=== PATIENT | male | born 1960 | race Caucasian/White ===

== ENCOUNTER 2018-07-04 13:02 | Emergency (ER) | payer OTHER, MEDICARE ==
[~2018-07-04] VITALS: Ht 170.1 cm; Wt 83.5 kg
--- NOTE | ~2018-07-04 | EKG ---
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
[~2018-07-04 13:02] MED LIST: AMLODIPINE BESYL5 MG PO; ATENOLOL25 MG PO; CETIRIZINE HCL10 MG PO; COUMADIN10 M1 PO; COZAAR100 MG PO; FISH OIL 1,0001 EAC1 PO; HYDROCHLOROTHIA25 M1 PO; LIPITOR80 MG PO; VITAMIN D-32000 UNIT PO
[2018-07-04 13:48] LABS: BASO % 0.6 % (0.0-1.0); EOS # 0.1 10*3/uL (0.0-0.4); EOS % 0.8 % (1.0-4.0); HEMATOCRIT 46.5 % (42.0-52.0); HEMOGLOBIN 15.8 g/dl (14.0-18.0); LYMPH # 1.3 10*3/uL (1.3-4.4); LYMPH % 20.5 % (27.0-41.0); MEAN CELL VOLUME 92.3 fl (80.0-94.0); MEAN CORPUSCULAR HGB 31.3 pg (27.0-31.0); MEAN PLATELET VOLUME 11.9 fl (9.6-12.3); MONO # 0.5 10*3/uL (0.1-1.0); MONO % 8.2 % (3.0-9.0); NEUT # 4.5 10*3/uL (2.3-7.9); NEUT % 69.7 % (47.0-73.0); PLATELET COUNT AUTOMATED 171 10*3/uL (130-400); RED BLOOD COUNT 5.04 10*6/uL (4.50-5.90); RED CELL DISTRI WIDTH 13.9 % (0-14.5); WHITE BLOOD COUNT 6.4 10*3/uL (4.8-10.8)
[2018-07-04 13:54] LABS: INTERNATIONAL NORM RATIO 2.7 (2.0-3.5)
[2018-07-04 14:01] LABS: ALBUMIN 4.1 gm/dl (3.1-4.5); ALKALINE PHOSPHATASE 85 U/L (45-117); BUN 12 mg/dl (7-24); CHLORIDE 105 mmol/L (98-107); CREATININE 1.05 mg/dL (0.70-1.30); POTASSIUM 3.8 mmol/L (3.5-5.1); SGOT/AST 39 IU/L (3-35); SGPT/ALT 60 U/L (12-78); SODIUM 140 mmol/L (136-145); TOTAL PROTEIN 7.9 gm/dL (6.4-8.2)
[2018-07-04 14:10] LABS: TROPONIN I < 0.015 ng/ml (<0.045)
== END 2018-07-04 15:50 | disposition home or self-care (01) ==
LOC: ED 13:02
PROVIDERS: Emergency Medicine
DX: R09.1 Pleurisy (principal); I10 Essential (primary) hypertension; E78.00 Pure hypercholesterolemia, unspecified; E66.3 Overweight; I73.9 Peripheral vascular disease, unspecified; Z90.49 Acquired absence of other specified parts of digestive tract; Z86.718 Personal history of other venous thrombosis and embolism; Z79.01 Long term (current) use of anticoagulants; Z79.899 Other long term (current) drug therapy; Z88.8 Allergy status to other drugs, medicaments and biological substances

== ENCOUNTER 2019-02-19 14:48 | Inpatient (IN) | payer MEDICARE ==
[~2019-02-19] VITALS: Ht 172.7 cm; Wt 84.5 kg
--- NOTE | ~2019-02-19 | EKG ---
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
--- NOTE | ~2019-02-19 | EKG ---
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
--- NOTE | ~2019-02-19 | EKG ---
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
[2019-02-19 14:52] VITALS: BP 114/56
[2019-02-19 16:05] LABS: BASO # 0.1 10*3/uL (0.0-0.1); BASO % 0.4 % (0.0-1.0); EOS % 0.3 % (1.0-4.0); HEMATOCRIT 47.2 % (42.0-52.0); LYMPH # 1.1 10*3/uL (1.3-4.4); LYMPH % 9.1 % (27.0-41.0); MEAN CELL VOLUME 93.1 fl (80.0-94.0); MEAN CORPUSCULAR HGB 31.6 pg (27.0-31.0); MEAN CORPUSCULAR HGB CONC 33.9 g/dl (33.0-37.0); MEAN PLATELET VOLUME 12.9 fl (9.6-12.3); MONO # 0.6 10*3/uL (0.1-1.0); MONO % 4.9 % (3.0-9.0); NEUT % 84.9 % (47.0-73.0); PLATELET COUNT AUTOMATED 153 10*3/uL (130-400); RED BLOOD COUNT 5.07 10*6/uL (4.50-5.90); RED CELL DISTRI WIDTH 13.9 % (0-14.5); WHITE BLOOD COUNT 11.7 10*3/uL (4.8-10.8)
[2019-02-19 16:19] LABS: ACT PARTIAL THROMBO TIME 25.6 SECONDS (20.0-32.1)
--- NOTE | 2019-02-19 16:36 | NUR ---
Deena ROSAS notified of critical lactic acid of 2.5
[2019-02-19 16:53] VITALS: BP 109/55
--- NOTE | 2019-02-19 16:53 | NUR ---
Patient reports 5/10 pain to his head. Patient given 1 norco. Will continue to monitor.
[2019-02-19 17:25] LABS: ALBUMIN 3.8 gm/dl (3.1-4.5); ALKALINE PHOSPHATASE 81 U/L (45-117); BUN 10 mg/dl (7-24); CHLORIDE 106 mmol/L (98-107); CREATININE 1.04 mg/dL (0.70-1.30); LIPASE 118 U/L (73-393); POTASSIUM 3.5 mmol/L (3.5-5.1); SGOT/AST 20 IU/L (3-35); SGPT/ALT 32 U/L (12-78); SODIUM 143 mmol/L (136-145)
[2019-02-19 17:27] LABS: TROPONIN I < 0.015 ng/ml (<0.045)
[2019-02-19 18:56] VITALS: BP 109/64
[2019-02-19 19:10] VITALS: BP 130/64
--- NOTE | 2019-02-19 19:10 | NUR ---
A 58, admitted to , under the services of LISSETTE Ortega DO with a diagnosis of CLOSED FRACTURE NASAL BONE, SYNCOPE AND COLLAPSE. Chief complaint is SYNCOPE. Patient arrived via bed from ER. Monitor applied. Initial assessment completed. Vital signs taken and recorded. LISSETTE ORTEGA DO notified of admission to the unit. Orders received. See assessment for past medical history, medications and allergies. Patient and/or family oriented to unit. [facility] visitation policy reviewed. Clothing/patient valuable form completed. KEIKO OJEDA
[2019-02-19] MEDS ORDERED: XARELTO20 M1 PO (19:37)
--- NOTE | 2019-02-19 21:12 | NUR ---
DR. CABRALES NOTIFIED OF COMPLETE MED REC. ORDERS RECEIVED.
--- NOTE | 2019-02-19 22:50 | NUR ---
DR. KELLER'S ANSWERING SERVICE NOTIFIED OF CONSULT.
[2019-02-20] VITALS: BP 116/63
--- NOTE | 2019-02-20 | NUR ---
PT RESTING COMFORTABLY. NO SIGNS/REPORTS OF DIZZINESS AT THIS TIME. CALL LIGHT IN REACH.
--- NOTE | 2019-02-20 00:36 | NUR ---
DR. CABRALES NOTIFIED OF PT HR OF 36. NO NEW ORDERS AT THIS TIME.
--- NOTE | 2019-02-20 01:14 | NUR ---
24 HR chart check completed.
--- NOTE | 2019-02-20 02:03 | NUR ---
DR. CABRALES NOTIFIED OF PT HR 33 THEN 29. NO NEW ORDERS AT THIS TIME. STATED TO NOTIFY HIM IF PT STAYED SUB 30.
[2019-02-20 06:41] LABS: BASO % 0.6 % (0.0-1.0); EOS # 0.1 10*3/uL (0.0-0.4); EOS % 2.1 % (1.0-4.0); HEMOGLOBIN 14.7 g/dl (14.0-18.0); LYMPH # 2.4 10*3/uL (1.3-4.4); MEAN CELL VOLUME 94.7 fl (80.0-94.0); MEAN CORPUSCULAR HGB 30.9 pg (27.0-31.0); MEAN CORPUSCULAR HGB CONC 32.7 g/dl (33.0-37.0); MEAN PLATELET VOLUME 13.6 fl (9.6-12.3); MONO # 0.5 10*3/uL (0.1-1.0); MONO % 7.4 % (3.0-9.0); NEUT # 3.6 10*3/uL (2.3-7.9); NEUT % 53.7 % (47.0-73.0); PLATELET COUNT AUTOMATED 141 10*3/uL (130-400); RED BLOOD COUNT 4.75 10*6/uL (4.50-5.90); WHITE BLOOD COUNT 6.6 10*3/uL (4.8-10.8)
[2019-02-20 07:17] LABS: ALBUMIN 3.4 gm/dl (3.1-4.5); ALKALINE PHOSPHATASE 66 U/L (45-117); BUN 14 mg/dl (7-24); CHLORIDE 108 mmol/L (98-107); CHOLESTEROL 93 mg/dL (<200); CREATININE 0.92 mg/dL (0.70-1.30); HDL CHOLESTEROL 32 mg/dl (40-60); LDL CHOLESTEROL 36 mg/dL (9-159); PHOSPHOROUS 3.4 mg/dL (2.5-4.9); POTASSIUM 3.5 mmol/L (3.5-5.1); SGOT/AST 18 IU/L (3-35); SGPT/ALT 29 U/L (12-78); SODIUM 143 mmol/L (136-145); TOTAL PROTEIN 6.1 gm/dL (6.4-8.2); TRIGLYCERIDES 126 mg/dl (<150); VLDL CHOLESTEROL 25 mg/dL (6-40)
[2019-02-20 07:19] LABS: ACT PARTIAL THROMBO TIME 35.5 SECONDS (20.0-32.1); INTERNATIONAL NORM RATIO 1.1 (2.0-3.5)
[2019-02-20 07:23] LABS: THYROID STIM HORMONE (HS) 0.422 uIU/ml (0.358-4.75)
[2019-02-20 07:43] LABS: VITAMIN D, 25-HYDROXY 49.7 ng/mL (30-100)
[2019-02-20 08:00] VITALS: BP 120/70
[2019-02-20 09:40] LABS: BILIRUBIN NEGATIVE (NEGATIVE); BLOOD NEGATIVE (NEGATIVE); CLARITY CLEAR (CLEAR); COLOR YELLOW (YELLOW); GLUCOSE NEGATIVE (NEGATIVE); KETONE NEGATIVE (NEGATIVE); LEUKO ESTERASE NEGATIVE (NEGATIVE); NITRITE NEGATIVE (NEGATIVE); SPECIFIC GRAVITY 1.025 (1.005-1.030); UROBILINOGEN 0.2 E.U./dl (0.2-1.0)
[2019-02-20 10:09] LABS: BACTERIA 1+; MUCOUS 1+
--- NOTE | 2019-02-20 11:15 | NUR ---
Data Reviewer in to talk to patient. Patient states lives at HOME with ALONE. There are NO steps in the home. Physician: Jodee REDD Pharmacy: [facility] Home health services: NONE Patient's level of ADLs: INDEPENDENT Patient has working utilities: YES DME: NONE Follow-up physician's appointment after d/c: WILL BE MADE BY HOSPITALIST NURSE DIRECTOR ON DISCHARGE Does patient want to access PORTAL?: NO Discharge plan PT STATES HE LIVES AT HOME ALONE AND IS INDEPENDENT IN HIS CARE. DENIES ANY NEEDS ON DISCHARGE. WILL CONTINUE TO FOLLOW. STATES HE WILL HAVE RIDE HOME. . KORI HOLM
[2019-02-20 12:00] VITALS: BP 134/63
--- NOTE | 2019-02-20 16:30 | NUR ---
Discharge instructions reviewed with patient/family. Patient receptive and verbalizes understanding. Follow-up care arranged. Written instructions given to patient/family. EMA MONTES
== END 2019-02-20 16:33 | disposition home or self-care (01) | DRG 312 ==
LOC: ED 14:48 → EDHOLD 18:34 → 5E 18:34
PROVIDERS: Internal Medicine; Nurse Practitioner Family; ADMIT Internal Medicine
DX: R55 Syncope and collapse (principal); E87.2 Acidosis; D68.59 Other primary thrombophilia; I82.503 Chronic embolism and thrombosis of unspecified deep veins of lower extremity, bilateral; R00.1 Bradycardia, unspecified; S02.2XXA Fracture of nasal bones, initial encounter for closed fracture; D72.829 Elevated white blood cell count, unspecified; I10 Essential (primary) hypertension; E78.00 Pure hypercholesterolemia, unspecified; I70.203 Unspecified atherosclerosis of native arteries of extremities, bilateral legs; F12.90 Cannabis use, unspecified, uncomplicated; S00.81XA Abrasion of other part of head, initial encounter; E66.3 Overweight; W07.XXXA Fall from chair, initial encounter; Y93.89 Activity, other specified; Y99.8 Other external cause status; Z88.8 Allergy status to other drugs, medicaments and biological substances; Y92.098 Other place in other non-institutional residence as the place of occurrence of the external cause; Z90.49 Acquired absence of other specified parts of digestive tract; Z82.49 Family history of ischemic heart disease and other diseases of the circulatory system; Z80.8 Family history of malignant neoplasm of other organs or systems; Z79.899 Other long term (current) drug therapy; Z79.01 Long term (current) use of anticoagulants; Z68.28 Body mass index [BMI] 28.0-28.9, adult

== ENCOUNTER 2021-03-03 10:08 | Inpatient (IN) | payer OTHER ==
[~2021-03-03] VITALS: Ht 172.7 cm; Wt 87.3 kg
[~2021-03-03 10:08] MED LIST changes: +XARELTO20 M1 PO
[2021-03-03 10:16] VITALS: BP 203/91
[2021-03-03 11:08] LABS: BASO # 0.1 10*3/uL (0.0-0.1); BASO % 0.6 % (0.0-1.0); EOS # 0.1 10*3/uL (0.0-0.4); EOS % 0.8 % (1.0-4.0); HEMATOCRIT 45.3 % (42.0-52.0); LYMPH # 1.4 10*3/uL (1.3-4.4); LYMPH % 15.7 % (27.0-41.0); MEAN CORPUSCULAR HGB 29.8 pg (27.0-31.0); MEAN PLATELET VOLUME 11.4 fl (9.6-12.3); MONO # 0.6 10*3/uL (0.1-1.0); MONO % 6.9 % (3.0-9.0); NEUT # 6.6 10*3/uL (2.3-7.9); NEUT % 75.7 % (47.0-73.0); PLATELET COUNT AUTOMATED 195 10*3/uL (130-400); RED BLOOD COUNT 4.87 10*6/uL (4.50-5.90); RED CELL DISTRI WIDTH 13.8 % (0-14.5); WHITE BLOOD COUNT 8.7 10*3/uL (4.8-10.8)
[2021-03-03 11:18] LABS: ALBUMIN 3.5 gm/dl (3.1-4.5); ALKALINE PHOSPHATASE 75 U/L (45-117); BUN 11 mg/dl (7-24); CHLORIDE 104 mmol/L (98-107); CREATININE 0.76 mg/dL (0.70-1.30); LIPASE 101 U/L (73-393); POTASSIUM 3.9 mmol/L (3.5-5.1); SGOT/AST 17 IU/L (3-35); SGPT/ALT 24 U/L (12-78); SODIUM 136 mmol/L (136-145); TOTAL PROTEIN 7.8 gm/dL (6.4-8.2); TROPONIN I < 0.015 ng/ml (<0.045)
[2021-03-03 11:20] VITALS: BP 184/87
[2021-03-03 12:00] VITALS: BP 154/80
[2021-03-03 16:00] VITALS: BP 158/63
[2021-03-03] MEDS ORDERED: WARFARIN SODIU7.5 MG PO (19:39)
[2021-03-03 20:00] VITALS: BP 163/84
[2021-03-04] VITALS (9 sets, daily range): BP systolic 143–198; BP diastolic 61–82
[2021-03-04] MEDS ORDERED: GABAPENTIN400 MG PO (01:27)
[2021-03-04] MEDS ORDERED: LISINOPRIL2.5 MG PO (01:28)
[2021-03-04 06:25] LABS: BASO % 0.4 % (0.0-1.0); EOS # 0.1 10*3/uL (0.0-0.4); EOS % 0.5 % (1.0-4.0); LYMPH # 1.2 10*3/uL (1.3-4.4); LYMPH % 13.2 % (27.0-41.0); MEAN CELL VOLUME 92.5 fl (80.0-94.0); MEAN CORPUSCULAR HGB 29.9 pg (27.0-31.0); MEAN CORPUSCULAR HGB CONC 32.3 g/dl (33.0-37.0); MEAN PLATELET VOLUME 11.2 fl (9.6-12.3); MONO # 0.7 10*3/uL (0.1-1.0); NEUT # 7.2 10*3/uL (2.3-7.9); NEUT % 78.6 % (47.0-73.0); PLATELET COUNT AUTOMATED 204 10*3/uL (130-400); RED BLOOD COUNT 4.65 10*6/uL (4.50-5.90); RED CELL DISTRI WIDTH 13.5 % (0-14.5); WHITE BLOOD COUNT 9.2 10*3/uL (4.8-10.8)
[2021-03-04 06:31] LABS: CHLORIDE 106 mmol/L (98-107); POTASSIUM 3.7 mmol/L (3.5-5.1); SODIUM 137 mmol/L (136-145)
[2021-03-04 06:49] LABS: ALBUMIN 3.1 gm/dl (3.1-4.5); ALKALINE PHOSPHATASE 71 U/L (45-117); BUN 10 mg/dl (7-24); CHOLESTEROL 104 mg/dL (<200); CREATININE 0.75 mg/dL (0.70-1.30); FREE T4 1.23 ng/dl (0.76-1.46); LDL CHOLESTEROL 47 mg/dL (9-159); SGOT/AST 18 IU/L (3-35); SGPT/ALT 22 U/L (12-78); THYROID STIM HORMONE (HS) 0.775 uIU/ml (0.358-4.75); TOTAL PROTEIN 7.1 gm/dL (6.4-8.2); TRIGLYCERIDES 122 mg/dl (<150)
[2021-03-04 07:55] LABS: VITAMIN D, 25-HYDROXY 41.4 ng/mL (30-100)
[2021-03-04 08:53] LABS: INTERNATIONAL NORM RATIO 3.2 (2.0-3.5)
[2021-03-04] MEDS ORDERED: NEURONTIN400 MG PO (13:39)
[2021-03-04] MEDS ORDERED: METOPROLOL SUCC50 M1 PO (13:47)
[2021-03-04] MEDS ORDERED: SERTRALINE HYDR50 MG PO (13:48)
[2021-03-04] MEDS ORDERED: ASPIRIN CHEWABL81 MG PO (13:50)
[2021-03-05] VITALS: BP 174/70
[2021-03-05 08:00] VITALS: BP 180/75
[2021-03-05 12:00] VITALS: BP 174/72
[2021-03-05 16:00] VITALS: BP 170/68
[2021-03-05 20:00] VITALS: BP 181/74
[2021-03-06] VITALS: BP 154/74
[2021-03-06 06:23] LABS: INTERNATIONAL NORM RATIO 1.4 (2.0-3.5)
[2021-03-06 08:00] VITALS: BP 161/67
[2021-03-06] MEDS ORDERED: DOXYCYCLINE100 M3 PO (11:00)
[2021-03-06] MEDS ORDERED: JANTOVEN6 M1 PO (11:09)
== END 2021-03-06 12:04 | disposition home or self-care (01) | DRG 565 ==
LOC: ED 10:08 → EDHOLD 10:56 → 5E 10:56
PROVIDERS: Emergency Medicine; Hospitalist; Registered Nurse; ADMIT Internal Medicine; ATTEND Internal Medicine
DX: T87.44 Infection of amputation stump, left lower extremity (principal); D68.59 Other primary thrombophilia; E44.0 Moderate protein-calorie malnutrition; E78.00 Pure hypercholesterolemia, unspecified; I73.9 Peripheral vascular disease, unspecified; I10 Essential (primary) hypertension; E66.3 Overweight; E55.9 Vitamin D deficiency, unspecified; Y83.5 Amputation of limb(s) as the cause of abnormal reaction of the patient, or of later complication, without mention of misadventure at the time of the procedure; F12.90 Cannabis use, unspecified, uncomplicated; R23.4 Changes in skin texture; Z88.8 Allergy status to other drugs, medicaments and biological substances; Z90.49 Acquired absence of other specified parts of digestive tract; Z82.49 Family history of ischemic heart disease and other diseases of the circulatory system; Z80.8 Family history of malignant neoplasm of other organs or systems; Y92.89 Other specified places as the place of occurrence of the external cause; Z86.718 Personal history of other venous thrombosis and embolism; Z79.899 Other long term (current) drug therapy; Z68.29 Body mass index [BMI] 29.0-29.9, adult

== ENCOUNTER → 2021-03-11 | Outpatient (CLI) | payer MEDICARE ==
[~2021-03-11] MED LIST changes: +ASPIRIN CHEWABL81 MG PO; +DOXYCYCLINE100 M3 PO; +GABAPENTIN400 MG PO; +JANTOVEN6 M1 PO; +LISINOPRIL2.5 MG PO; +METOPROLOL SUCC50 M1 PO; +NEURONTIN400 MG PO; +SERTRALINE HYDR50 MG PO; +WARFARIN SODIU7.5 MG PO
== END ==
LOC: WOUNDCARE 01:07
PROVIDERS: ATTEND Nurse Practitioner
DX: L89.890 Pressure ulcer of other site, unstageable (principal); T87.89 Other complications of amputation stump; L03.116 Cellulitis of left lower limb; I73.9 Peripheral vascular disease, unspecified; I10 Essential (primary) hypertension; E78.00 Pure hypercholesterolemia, unspecified; E55.9 Vitamin D deficiency, unspecified; F12.10 Cannabis abuse, uncomplicated; Z86.718 Personal history of other venous thrombosis and embolism; Z87.891 Personal history of nicotine dependence; Z90.49 Acquired absence of other specified parts of digestive tract; Z95.818 Presence of other cardiac implants and grafts; Z79.01 Long term (current) use of anticoagulants; Z79.82 Long term (current) use of aspirin; Z79.899 Other long term (current) drug therapy; Y83.5 Amputation of limb(s) as the cause of abnormal reaction of the patient, or of later complication, without mention of misadventure at the time of the procedure

== ENCOUNTER 2021-03-18 14:29 | Emergency (ER) | payer MEDICARE, OTHER ==
[~2021-03-18] VITALS: Ht 170.1 cm; Wt 87.1 kg
[~2021-03-18 14:29] MED LIST changes: -HYDROCODONE-AC1 EAC1 PO
[2021-03-18] MEDS ORDERED: HYDROCODONE-AC1 EAC1 PO (16:12)
== END 2021-03-18 16:20 | disposition home or self-care (01) ==
LOC: ED 14:29
DX: G89.28 Other chronic postprocedural pain (principal); M79.605 Pain in left leg; Z89.512 Acquired absence of left leg below knee; Z88.8 Allergy status to other drugs, medicaments and biological substances; Z79.2 Long term (current) use of antibiotics; Z79.01 Long term (current) use of anticoagulants; Z79.899 Other long term (current) drug therapy; Z79.82 Long term (current) use of aspirin; Z90.49 Acquired absence of other specified parts of digestive tract

== ENCOUNTER → 2021-03-18 | Outpatient (CLI) | payer MEDICARE ==
[~2021-03-18] MED LIST changes: +HYDROCODONE-AC1 EAC1 PO
== END ==
LOC: WOUNDCARE 05:39
PROVIDERS: ATTEND Nurse Practitioner
DX: T87.89 Other complications of amputation stump (principal); L89.890 Pressure ulcer of other site, unstageable; L03.116 Cellulitis of left lower limb; I73.9 Peripheral vascular disease, unspecified; I10 Essential (primary) hypertension; E78.00 Pure hypercholesterolemia, unspecified; E55.9 Vitamin D deficiency, unspecified; F12.10 Cannabis abuse, uncomplicated; Z86.718 Personal history of other venous thrombosis and embolism; Z87.891 Personal history of nicotine dependence; Y83.5 Amputation of limb(s) as the cause of abnormal reaction of the patient, or of later complication, without mention of misadventure at the time of the procedure

== ENCOUNTER → 2021-03-25 | Outpatient (CLI) | payer MEDICARE, OTHER ==
[~2021-03-25] MED LIST changes: +HYDROCODONE-AC1 EAC1 PO
== END ==
LOC: WOUNDCARE 02:16
PROVIDERS: ATTEND Nurse Practitioner
DX: T87.89 Other complications of amputation stump (principal); L89.890 Pressure ulcer of other site, unstageable; L03.116 Cellulitis of left lower limb; I73.9 Peripheral vascular disease, unspecified; I10 Essential (primary) hypertension; E78.00 Pure hypercholesterolemia, unspecified; E55.9 Vitamin D deficiency, unspecified; F12.10 Cannabis abuse, uncomplicated; Z86.718 Personal history of other venous thrombosis and embolism; Z87.891 Personal history of nicotine dependence; Y83.5 Amputation of limb(s) as the cause of abnormal reaction of the patient, or of later complication, without mention of misadventure at the time of the procedure

== ENCOUNTER → 2021-04-01 | Outpatient (CLI) | payer MEDICARE | LOC: WOUNDCARE 01:02 | PROVIDERS: ATTEND Nurse Practitioner | DX: L89.890 Pressure ulcer of other site, unstageable (principal); T87.89 Other complications of amputation stump; L03.116 Cellulitis of left lower limb; I73.9 Peripheral vascular disease, unspecified; I10 Essential (primary) hypertension; E78.00 Pure hypercholesterolemia, unspecified; E55.9 Vitamin D deficiency, unspecified; F12.10 Cannabis abuse, uncomplicated; Z86.718 Personal history of other venous thrombosis and embolism; Z87.891 Personal history of nicotine dependence; Y83.5 Amputation of limb(s) as the cause of abnormal reaction of the patient, or of later complication, without mention of misadventure at the time of the procedure ==

== ENCOUNTER → 2021-04-15 | Outpatient (CLI) | payer MEDICARE | LOC: WOUNDCARE 04-13 01:17 | PROVIDERS: ATTEND Nurse Practitioner Primary Care | DX: T87.89 Other complications of amputation stump (principal); L89.890 Pressure ulcer of other site, unstageable; L03.116 Cellulitis of left lower limb; I73.9 Peripheral vascular disease, unspecified; I10 Essential (primary) hypertension; E78.00 Pure hypercholesterolemia, unspecified; E55.9 Vitamin D deficiency, unspecified; F12.10 Cannabis abuse, uncomplicated; Z86.718 Personal history of other venous thrombosis and embolism; Z87.891 Personal history of nicotine dependence; Y83.5 Amputation of limb(s) as the cause of abnormal reaction of the patient, or of later complication, without mention of misadventure at the time of the procedure ==

== ENCOUNTER → 2021-04-22 | Outpatient (CLI) | payer MEDICARE | LOC: WOUNDCARE 02:13 | PROVIDERS: ATTEND Nurse Practitioner Primary Care | DX: T87.89 Other complications of amputation stump (principal); L89.890 Pressure ulcer of other site, unstageable; L03.116 Cellulitis of left lower limb; I73.9 Peripheral vascular disease, unspecified; I10 Essential (primary) hypertension; E78.00 Pure hypercholesterolemia, unspecified; E55.9 Vitamin D deficiency, unspecified; F12.10 Cannabis abuse, uncomplicated; Z86.718 Personal history of other venous thrombosis and embolism; Z87.891 Personal history of nicotine dependence; Y83.5 Amputation of limb(s) as the cause of abnormal reaction of the patient, or of later complication, without mention of misadventure at the time of the procedure ==

== ENCOUNTER → 2021-04-29 | Outpatient (CLI) | payer MEDICARE | LOC: WOUNDCARE 00:46 | PROVIDERS: ATTEND Nurse Practitioner | DX: T87.89 Other complications of amputation stump (principal); L89.890 Pressure ulcer of other site, unstageable; L03.116 Cellulitis of left lower limb; I73.9 Peripheral vascular disease, unspecified; I10 Essential (primary) hypertension; E78.00 Pure hypercholesterolemia, unspecified; E55.9 Vitamin D deficiency, unspecified; F12.10 Cannabis abuse, uncomplicated; Z86.718 Personal history of other venous thrombosis and embolism; Z87.891 Personal history of nicotine dependence; Y83.5 Amputation of limb(s) as the cause of abnormal reaction of the patient, or of later complication, without mention of misadventure at the time of the procedure ==

== ENCOUNTER → 2021-05-05 | Outpatient (CLI) | payer MEDICARE | LOC: WOUNDCARE 01:46 | PROVIDERS: ATTEND Surgery | DX: T87.89 Other complications of amputation stump (principal); L89.890 Pressure ulcer of other site, unstageable; L03.116 Cellulitis of left lower limb; I73.9 Peripheral vascular disease, unspecified; I10 Essential (primary) hypertension; E78.00 Pure hypercholesterolemia, unspecified; E55.9 Vitamin D deficiency, unspecified; F12.10 Cannabis abuse, uncomplicated; Z86.718 Personal history of other venous thrombosis and embolism; Z87.891 Personal history of nicotine dependence; Y83.5 Amputation of limb(s) as the cause of abnormal reaction of the patient, or of later complication, without mention of misadventure at the time of the procedure ==